=== PATIENT | male | born 1975 | race Asian ===

== ENCOUNTER 2019-01-15 08:07 | Day surgery (SDC) | payer BC, OTHER ==
[~2019-01-15] VITALS: Ht 177.8 cm; Wt 112.3 kg
[2019-01-15] MEDS ORDERED: METFORMIN (09:11)
[2019-01-15 09:13] VITALS: Ht 177.8 cm; Wt 112.3 kg
[2019-01-15 10:27] VITALS: BP 139/86; PULSE 68; RESP 18
[2019-01-15] MEDS ORDERED: PROPOFOL 20 ML ONE (10:28)
[2019-01-15] MEDS ORDERED: MIDAZOLAM 1 MG/ML 2 ML INJ ONE (10:28)
[2019-01-15] MEDS ORDERED: LIDOCAINE 2% (SDV) 5 ML INJ ONE (10:28)
[2019-01-15] MEDS ORDERED: FENTAnyl 50 MCG/ML VIAL ONE (10:28)
--- NOTE | 2019-01-15 10:48 | PREAC ---
Date/Time of Note Date/Time of Note DATE: 01/15/19 TIME: 10:45 Anesthesia Eval and Record Evaluation Time Pre-Procedure Interview DATE: 01/15/19 TIME: 10:45 Age 43 Sex male NPO: 8 hrs Preoperative diagnosis POSITIVE OCCULT BLOOD Planned procedure COLONOSCOPY Past Medical History Past Medical History: Includes Endo: Diabetes Surgery & Anesthesia Issues No known issue Meds Anticoagulation: No Beta Berta within 24 hr: No Reason Beta Berta not given: Pt. not on B-Berta Reported Medications [Metformin] No Conflict Check 01/15/19 Meds reviewed: Yes Allergies Coded Allergies: No Known Allergy (Unverified , 01/15/19) Allergies Reviewed: Yes Labs/Studies Labs Reviewed: Reviewed by anesthesiologist test: N/A Pre-procedure Exam Last vitals Vital Signs Date Temp Pulse Resp B/P (MAP) Pulse Ox O2 O2 Flow FiO2 Time Delivery Rate 01/15/19 98.0 68 18 139/86 96 Room Air 10:27 (103) Airway: Adequate mouth opening, Adequate thyromental dist Mallampati: Mallampati II Teeth: Normal Lung: Normal Heart: Normal ASA Physical Status ASA physical status: 2 Emergency: None Pre-operative Attestations Prior to commencing anesthesia and surgery, the patient was re-evaluated, there was verification of: *The patient's identity *The results of appropriate recent lab work and preoperative vital signs *The above evaluation not changing prior to induction *Anesthetic plan, risk benefits, alternative and complications discussed with patient/family; questions answered; patient/family understands, accepts and wishes to proceed. CLEMENT NOBLES DO January 15, 2019 10:48
[2019-01-15 10:55] VITALS: BP 114/73; PULSE 75; RESP 16
--- NOTE | 2019-01-15 11:25 | PAC ---
Date/Time of Note Date/Time of Note DATE: 01/15/19 TIME: 11:23 Post-Anesthesia Notes Post-Anesthesia Note Last documented vital signs Vital Signs Date Temp Pulse Resp B/P (MAP) Pulse Ox O2 O2 Flow FiO2 Time Delivery Rate 01/15/19 98 70 18 120/65 96 Room Air 1123 Activity: WNL Respiratory function: WNL Cardiovascular function: WNL Mental status: Baseline Pain reasonably controlled: Yes Hydration appropriate: Yes Nausea/Vomiting absent: Yes CLEMENT NOBLES DO January 15, 2019 11:25
[2019-01-15 11:38] VITALS: BP 136/86; PULSE 71; RESP 20
== END 2019-01-15 11:48 | disposition home or self-care (01) ==
LOC: GIL 08:07
PROVIDERS: ATTEND Internal Medicine Gastroenterology
DX: K64.8 Other hemorrhoids (principal); R19.5 Other fecal abnormalities; E66.9 Obesity, unspecified; Z68.35 Body mass index [BMI] 35.0-35.9, adult; E11.9 Type 2 diabetes mellitus without complications; Z79.84 Long term (current) use of oral hypoglycemic drugs
CPT/HCPCS: 45378; 82962; J2250; J3010; Z7610